=== PATIENT | male | born 1995 | race Hispanic/Latino ===

== ENCOUNTER 2020-12-14 11:04 | Emergency (ER) | payer OTHER ==
[~2020-12-14 11:04] MED LIST: Iopamidol-370 76% 500 ML 1 ML ONE
[2020-12-14] MEDS ORDERED: Ketorolac Tromethamine 30 MG/ML VIAL ONE (11:25)
[2020-12-14] MEDS ORDERED: Morphine 4 MG/ML VIAL ONE (11:25)
[2020-12-14 11:34] LABS: #Basophils 0.1 thou/uL (0.0-0.2); #Lymphocytes 2.3 thou/uL (1.20-3.40); #Monocytes 0.8 thou/uL (0.11-0.59); #Neutrophils 7.7 thou/uL (1.40-6.50); %Basophils 0.5 % (0.0-1.0); %Eosinophils 0.4 % (0.0-10.0); %Lymphocytes 21.3 % (21.0-51.0); %Neutrophils 70.8 % (42.0-75.0); Hemoglobin 15.9 g/dL (14.0-18.0); Mean Corpuscular Hemoglobin 29.3 pg (27.0-31.0); Mean Corpuscular Volume 86.1 fL (78.0-98.0); Mean Platelet Volume 8.8 fL (7.4-10.4); Platelet Count 205 thou/uL (130-400); RBC Distribution Width 11.9 % (11.5-14.5); Red Blood Cell (RBC) Count 5.44 mill/uL (4.70-6.10); White Blood Cell (WBC) Count 10.8 thou/uL (4.8-10.8)
[2020-12-14 11:56] LABS: ALT (SGPT) 61 U/L (8-55); AST (SGOT) 39 U/L (5-34); Albumin 4.5 g/dL (3.5-5.0); Alkaline Phosphatase 73 U/L (40-110); Anion Gap 15 mmol/L (10-20); BUN (Urea Nitrogen) 15 mg/dL (8.9-20.6); Bilirubin, Total 0.5 mg/dL (0.2-1.2); Calc. Creatinine Clearance 0 mL/min (70-130); Calcium 9.4 mg/dL (7.8-10.44); Carbon Dioxide 23 mmol/L (22-29); Chloride 104 mmol/L (98-107); Globulin 2.9 g/dL (2.4-3.5); Glucose 106 mg/dL (70-105); Potassium 4.2 mmol/L (3.5-5.1); Protein, Total 7.4 g/dL (6.0-8.3); Sodium 138 mmol/L (136-145)
== END 2020-12-14 13:04 | disposition home or self-care (01) ==
LOC: ERS 11:04
DX: S13.4XXA Sprain of ligaments of cervical spine, initial encounter (principal); R10.32 Left lower quadrant pain; V89.2XXA Person injured in unspecified motor-vehicle accident, traffic, initial encounter
CPT/HCPCS: 70450; 71045; 72125; 74177; 80053; 85025; 96374; G0390; J1885; J2270; Q9967